=== PATIENT | male | born 1980 | race Caucasian/White ===

== ENCOUNTER → 2018-11-28 | Outpatient (CLI) | payer BC, SELFPAY ==
--- NOTE | 2018-11-28 16:18 | RAD_ITS ---
STUDY: X-RAY - RIGHT SHOULDER REASON FOR EXAM: Male, 38 years old. Right shoulder pain for several days. TECHNIQUE: 3 view(s) of the shoulder. COMPARISON: None. FINDINGS: Normal glenohumeral articulation. Normal acromioclavicular joint. Normal acromion. Normal humeral head and visualized proximal humerus. The small calcifications near the greater tuberosity suggesting calcified deltoid bursitis. The soft tissue structures are unremarkable. Normal visualized pulmonary apex. RAD/Shoulder min 2 Views IMPRESSION: Question calcific bursitis. There is no fracture or dislocation. Electronically Signed: Ariel Wagn DO at 21:15 EDT Tel [phone], Service support ,
== END | disposition home or self-care (01) ==
LOC: MTRAD 16:16
PROVIDERS: Family Provider Family Medicine; PCP Family Medicine; Referring Provider Family Medicine; Visit Provider Family Medicine
DX: M25.511 Pain in right shoulder (principal)
CPT/HCPCS: 73030

== ENCOUNTER 2018-12-27 17:30 | Outpatient (RCR) | payer BC, SELFPAY ==
--- NOTE | 2018-12-13 16:34 | HP.PTEVAL ---
Patient's Visit Information TRISTAN GALLEGOS is a 38 year old M referred to Physical Therapy by Huy John MD with a diagnosis of R shoulder pain. Date of Evaluation: 12/13/18 Physical Therapist: Armando Lamar, KRISST, OCS, CSCS - Visit Plan Frequency: 1x/Week Duration: 4-6 Weeks Plan: weekly x 3-6 for ... management and education on healing process,. Shoulder end range and RC and scap strength. Next session phase 3 strength if doing well. Pec stretch - Subjective Findings: Saw doctor for R shoulder pain started two weeks ago insidiously. He does work at [employer] in [place] and works hard lifting all day. Went to [place] the next day and shoulder hurt really bad that weekend. Hurt all the time then and had to prop it comfortably. Went to doctor and took x rays and given anti-inflammatory. Was hard to lift at that point. Quit hurting with antiinflammatory but has not needed since Monday. Not painful at rest now and easier to move. Taking it easy at work and home avoiding picking up heavy items when he can. Sleep is interrupted sometimes, tries to avoid rolling on it which can hurt. Sometimes sleeps with arm overhead and that hurts more. Is right handed. [facility] ADLs are not too bad now but were problematic at first. Worse in a.m. Currently feels good but hasn't pushed it ...70% better overall. - Pain R shoulder anterior top Pain Intensity (Out of 10): 0 Pain Intensity Range: 0, 4 Comment: worse with a.m. and lifting. - Objective Forward shoulder protracted scapular posture. Tender to palpation over R supraspinatus insertion moderately and slightly at biceps groove. UE AROM WNL B but R has some anterior shoulder pain at end range of elevationa dn ext /internal rotation. reflexes 2/3 bi and triceps. Sensation UE WNL to gross light touch. C/S AROM WNL and without pain. Strength R shoulder 4+ with some pain on ext rotation and flex/abd, L shoulder 5/5. elbows and wrists and thumb ext 5/5 B. - ext rotation lag test. - drop arm. + slighlty Rodriguez Augusto and neer impingement tests on R. Functionally ambulates and transfers I. - Goals Goal 1:: Full aROM R shoulder without pain Goal Time Frame: 4-6 Weeks Goal 2:: Patient back to 100% work without noticing pain Goal Time Frame: 4-6 Weeks Goal 3:: pt sleep one week without waking at night due to pain. Goal Time Frame: 4-6 Weeks Goal 4:: I appropriate HEP to minimize future problems Goal Time Frame: 4-6 Weeks - Rehabilitation Potential Physical Therapy Diagnosis: R impingement tendonitis. Rehabilitation Potential: Good - Anticipated Interventions Patient/Client Instruction: Educate patient on: Condition For the Purpose of:: To decrease pain, To improve nutrient delivery to tissue Therapeutic Exercise to Include: Strength training, Postural training, Passive ROM, Active ROM For the Purpose of:: To decrease pain, To improve nutrient delivery to tissue, To improve muscle performance and motor function, To improve ability of physical actions for home/community/work/leisure Thank you for the opportunity to evaluate your patient. For Medicare and Medicare HMO plans, please review the plan of care and approve it. It will need to be FAXED BACK to us at [phone] for Medicare purposes. For Medicare only, by signing this I certify the plan of care. Please let me know if there are questions or concerns regarding this plan of care. Physician Signature: Date:
--- NOTE | 2018-12-27 17:50 | HP.PTDCSUM ---
HP - PT D/C Summary It has been my pleasure to treat TRISTAN GALLEGOS under orders from Huy John MD, for the diagnosis of R shoulder pain for a total of 3 visit(s). Discharge Date: 12/27/18 Please see the following information for a summary of their discharge status. - Subjective Subjective: Waking up in the morning painfree more often. They help to loosen him up. No other real pain. Only slight pain if moves wrong but transient. Saw doctor and looks good. HEP daily. - Pain R shoulder anterior top Pain Intensity (Out of 10): 0 - Overall Improvement % Improvement: 95 - Objective Objective/Function: Full aROM B shoulders without pain today. Strength is 4+/5 without pain. OVERALL DOING WELL AND READY TO CONTINUE EX ON HIS OWN. - Goals Goal 1:: Full aROM R shoulder without pain Goal Progress: Goal Met Goal 2:: Patient back to 100% work without noticing pain Goal Progress: Goal Met Goal 3:: pt sleep one week without waking at night due to pain. Goal Progress: Goal Met Goal 4:: I appropriate HEP to minimize future problems Goal Progress: Goal Met - Plan Plan: D/C - D/C Information Discharge Comments: dOING WELL ADN WILL CONTINUE VIA hep AND CONTACT DOCTOR IF PAIN RETURNS If there are questions or concerns regarding this patient's physical therapy, please feel free to call me at [phone]. Thank you for the referral of this patient. Sincerely, Armando Lamar, DPT, OCS, CSCS
== END 2018-12-27 19:00 | disposition home or self-care (01) ==
LOC: PT 17:30
PROVIDERS: Family Provider Family Medicine; PCP Family Medicine; Referring Provider Family Medicine; Visit Provider Family Medicine
DX: M25.511 Pain in right shoulder (principal)
CPT/HCPCS: 97110; 97161; 97530

== ENCOUNTER → 2025-07-12 | Outpatient (CLI) | payer BC, SELFPAY ==
[2025-07-12 13:29] LABS: Cholesterol 256 mg/dL (<=200); Low Density Lipoprotein Calc. 189 mg/dL; Triglycerides 167 mg/dL; Very Low Density Lipoprotein 33 mg/dL (5-40); cholesterol:hdl ratio screen 7.19
[2025-07-12 13:41] LABS: Anion Gap 10 (7-18); BUN 11 mg/dL (4-19); BUN/Creat Ratio 12.4 RATIO (10-20); Calcium,Total 9.3 mg/dL (7.6-11.0); Carbon Dioxide 24.1 mmol/L (20.0-29.0); Chloride 104 mmol/L (96-106); Glucose 98 mg/dL (70-99); Potassium 4.3 mmol/L (3.5-5.1)
== END | disposition home or self-care (01) ==
LOC: LAB 11:07
PROVIDERS: PCP Family Medicine; Referring Provider Family Medicine; Visit Provider Family Medicine
DX: Z13.220 Encounter for screening for lipoid disorders (principal); Z13.1 Encounter for screening for diabetes mellitus
CPT/HCPCS: 36415; 80048; 80061